=== PATIENT | male | born 1980 | race Caucasian/White ===

== ENCOUNTER 2018-12-11 22:51 | Emergency (ER) | payer MEDICAID ==
[2018-12-11 23:01] VITALS: BP 172/100
[2018-12-12] MEDS ORDERED: CLINDAMYCIN HCL 150 MG CAPSULE PO ONE (00:10)
--- NOTE | 2018-12-12 00:16 | ER Document Report ---
ED General - General Chief Complaint: Skin Problem Stated Complaint: LUMP ON BACK OF EAR Time Seen by Provider: 12/11/18 23:44 Primary Care Provider: JUVE RENTERIA NP-C [Primary Care Provider] - 12/14/18 LJ RANDLE DO [ASSOCIATE] - Follow up in 1 week Notes: Patient is a pleasant 30-year-old male presents with complaint of a lump behind his right ear. Patient says that it started earlier today but became much larger last few hours. Says he has some soreness around the area. Mild dental pain. No fevers. No vomiting. No difficulty breathing or swallowing. He denies this ever occurring in the past. He is a smoker. TRAVEL OUTSIDE OF THE [place] IN LAST 30 DAYS: No - Related Data Allergies/Adverse Reactions: bee venom protein (honey bee) Allergy (Verified 12/11/18 23:39) vancomycin Allergy (Verified 12/11/18 23:39) walnut Allergy (Verified 12/11/18 23:39) cillins Allergy (Uncoded 12/11/18 23:39) Past Medical History - Social History Smoking Status: Current Every Day Smoker Frequency of alcohol use: None Drug Abuse: None Family History: Reviewed & Not Pertinent Patient has suicidal ideation: No Patient has homicidal ideation: No Renal/ Medical History: Denies: Hx Peritoneal Dialysis Past Surgical History: Reports: Hx Tonsillectomy Review of Systems - Review of Systems Notes: My Normal Review Basic REVIEW OF SYSTEMS: CONSTITUTIONAL : Denies fever, chills, or sweats. Denies recent illness. EENT: Dental pain. Painful lump high in right ear. RESPIRATORY: Denies cough, cold, or chest congestion. Denies shortness of breath, difficulty breathing, or wheezing. GASTROINTESTINAL: Denies abdominal pain. Denies nausea, vomiting SKIN: Denies rash or skin lesions. NEUROLOGICAL: Denies altered mental status or loss of consciousness. Denies headache. Denies weakness or paralysis or loss of use of either side. Denies problems with gait or speech. Denies sensory or motor loss. ALL OTHER SYSTEMS REVIEWED AND NEGATIVE. Physical Exam - Vital signs Vitals: Temp Pulse Resp BP Pulse Ox 97.9 F 65 20 172/100 H 95 12/11/18 23:00 12/11/18 23:00 12/11/18 23:00 12/11/18 23:00 12/11/18 23:00 - Notes Notes: General Appearance: Well nourished, alert, cooperative, no acute distress, no obvious discomfort. Well-appearing. Vitals: reviewed, See vital signs table. Head: no swelling or tenderness to the head Eyes: PERRL, EOMI, Conjuctiva clear Mouth: Patient does have multiple dental caries especially in the right molar region. No gingival abscess on exam. Throat: No tonsillar inflammation, No airway obstruction, No lymphadenopathy Ear: Patient's right tympanic membrane is normal. Right ear is not red or swollen. He does have an inflamed lymph node behind the right ear. No associated abscess on palpation around the lymph node. Neck: Supple, no neck tenderness, No thyromegaly Skin: warm, dry, appropriate color, no rash Neuro: speech clear, oriented x 3, normal affect, responds appropriately to questions. Course - Re-evaluation Re-evalutation: 12/12/18 00:28 Patient has what appears to be inflamed periauricular lymph node. He does have some dental caries. I will place him on antibiotic. I encouraged him to follow-up with his doctor this week. If he continues to have enlargement of lymph node or if he has increasing swelling then he should follow-up with ear nose and throat doctor for which I gave him the phone number. Encouraged him return to ER if he has significant increase in swelling, fevers, difficulty breathing or swelling, or if he feels unwell in any way. Patient agrees with plan will be discharged home. Dictation of this chart was performed using voice recognition software; therefore, there may be some unintended grammatical errors. - Vital Signs Vital signs: Temp Pulse Resp BP Pulse Ox 97.9 F 65 20 172/100 H 95 12/11/18 23:00 12/11/18 23:00 12/11/18 23:00 12/11/18 23:00 12/11/18 23:00 Discharge - Discharge Clinical Impression: Enlarged lymph node in neck Condition: Good Disposition: HOME, SELF-CARE Additional Instructions: On exam you have an enlarged lymph node in the periauricular region. This is just behind and below the right ear. This is usually related to infection. This can also be caused by cancer however this is likely being the node just suddenly became inflamed today. We will place you on an antibiotic to help cover for potential causes of infection such as a dental infection or ear infection. I want you to follow up with your doctor next week for reevaluation. If the area of swelling or lymph node does not improve and continues to enlarge you may need to follow-up with ear nose and throat doctor. I have plac ed the phone number to Dr. Randle, our ear nose and throat physician build automation engineer. Please call his office to make a follow-up appointment if it is not reducing in size or if it is enlarging. Please return to the ER immediately if you have fevers, significant increase in swelling, difficulty breathing or swallowing, or if you feel that you are worsening in any way. Prescriptions: Clindamycin HCl [Cleocin 150 mg Capsule] 300 mg PO Q6 #56 capsule Forms: Return to Work Referrals: JUVE RENTERIA, SYSTEMS ARCHITECT-C [Primary Care Provider] - 12/14/18 LJ RANDLE DO [ASSOCIATE] - Follow up in 1 week
== END 2018-12-12 00:25 | disposition home or self-care (01) ==
LOC: ER 22:51
DX: R59.0 Localized enlarged lymph nodes (principal); K02.9 Dental caries, unspecified; K08.89 Other specified disorders of teeth and supporting structures; F17.200 Nicotine dependence, unspecified, uncomplicated
CPT/HCPCS: 99283; J3490

== ENCOUNTER 2020-05-06 12:53 | Observation (INO) | payer MEDICAID ==
[~2020-05-06 12:53] MED LIST: SUCCINYLCHOLINE CHLORIDE INJ 200 MG/10 ML VIAL ONE
[2020-05-06] MEDS ORDERED: CLINDAMYCIN 300 MG/D5W RTU 300 MG/50 ML RTUPB IV ONE (14:51)
--- NOTE | 2020-05-06 14:53 | ER Document Report ---
ED Skin Rash/Insect Bite/Abscs - General Chief Complaint: Cyst Stated Complaint: POSSIBLE CYST Time Seen by Provider: 05/06/20 13:55 Notes: Patient is a 39-year-old male who presents to the emergency department with a chief complaint of a possible abscess to his perineal area that radiates to his left testicle. States that he started to have pain 2 days ago. States that he went to urgent care and they referred him to the emergency department. Patient states that he has history of abscesses in the past. Denies any history of IV drug use. TRAVEL OUTSIDE OF THE [place] IN LAST 30 DAYS: No - Related Data Allergies/Adverse Reactions: bee venom protein (honey bee) Allergy (Verified 12/11/18 23:39) vancomycin Allergy (Verified 12/11/18 23:39) walnut Allergy (Verified 12/11/18 23:39) cillins Allergy (Uncoded 12/11/18 23:39) Past Medical History - Social History Smoking Status: Unknown if Ever Smoked Family History: Reviewed & Not Pertinent Patient has homicidal ideation: No Renal/ Medical History: Denies: Hx Peritoneal Dialysis Past Surgical History: Reports: Hx Tonsillectomy Review of Systems - Review of Systems Notes: REVIEW OF SYSTEMS: CONSTITUTIONAL : Denies recent illness. Denies recent unintentional weight loss. Denies fever, chills, or sweats. EENT: Denies eye, ear, throat, or mouth pain, discharge, or symptoms. Denies nasal or sinus congestion. CARDIOVASCULAR: Denies chest pain. RESPIRATORY: Denies shortness of breath, cough, congestion, difficulty breathing, or wheezing. GASTROINTESTINAL: Denies nausea, vomiting, and diarrhea. Denies abdominal pain. Denies constipation. GENITOURINARY: Denies difficulty urinating, burning, blood in urine, urgency or frequency. MUSCULOSKELETAL: Denies neck and back pain. Denies joint pain or swelling. SKIN: See HPI. HEMATOLOGIC : Denies easy bruising or bleeding. LYMPHATIC: Denies swollen, painful, enlarged glands. NEUROLOGICAL: Denies no numbness or tingling denies weakness. Denies headache. Denies altered mental status. Denies alteration in speech. PSYCHIATRIC: Denies stress, anxiety, alteration in sleep patterns, or depression. All other systems reviewed and negative. Physical Exam - Vital signs Vitals: Temp Pulse Resp BP Pulse Ox 100 F 88 16 138/80 H 100 12/13/20 13:16 05/06/20 13:16 05/06/20 13:16 05/06/20 13:16 05/06/20 13:16 - Notes Notes: PHYSICAL EXAMINATION: GENERAL: Appears well, healthy, well-nourished, no acute distress. HEAD: Normocephalic, atraumatic. EYES: PERRL, conjunctiva normal, all extraocular movements intact, sclera nonicteric ENT: Moist mucous membranes. NECK: Supple, no noticeable swelling, redness, rash. Normal range of motion. LUNGS: Equal breath sounds bilaterally and clear to auscultation. No wheezes rales or rhonchi. CARDIOVASCULAR: S1-S2, regular rate, regular rhythm. Radial pulses 2+, normal. ABDOMEN: Normoactive bowel sounds. Soft, nontender, no guarding, no rebound tenderness, and no masses palpated. EXTREMITIES: Normal strength and range of motion, no pitting or edema. No cyanosis. NEUROLOGICAL: Moves all extremities upon command. Strength 5/5 in all extremities. PSYCH: Normal mood, normal affect. SKIN: Warm, dry. No rash, lesions, ulcerations noted. Normal skin turgor. PERINIUM: Erythema noted to Left side of perinium. Course - Re-evaluation Re-evalutation: 05/06/20 17:10 Hematology shows a leukocytosis of 14,100. Chemistries are unremarkable. Nadia RN at bedside. I did appreciate an abscess on ultrasound. 05/06/20 17:[address] Julian. Will await a call back. 05/06/20 17:[address] Julian. He will evaluate the patient. 05/06/20 18:18 Dr. Julian has evaluated the patient. Patient will be brought to the OR and will be admitted to the surgical floor. - Vital Signs Vital signs: Temp Pulse Resp BP Pulse Ox 100 F 88 16 138/80 H 100 05/06/20 13:16 05/06/20 13:16 05/06/20 13:16 05/06/20 13:16 05/06/20 13:16 - Laboratory Results Result Diagrams: 05/06/20 14:36 05/06/20 14:36 Laboratory Results Interpreted: 05/06/20 14:36 WBC 14.1 H Absolute Neuts (auto) 10.8 H Critical Laboratory Results Reviewed: No Critical Results - Radiology Results Critical Radiology Results Reviewed: No Critical Results Discharge - Discharge Clinical Impression: Perineal abscess Condition: Stable Disposition: ADMITTED INPATIENT Admitting Provider: Surgicalist Unit Admitted: Surgical Floor
[2020-05-06 15:17] LABS: ABSOLUTE BASOPHILS # (AUTO) 0.1 10^3/uL (0.0-0.2); ABSOLUTE EOSINOPHILS # (AUTO) 0.2 10^3/uL (0.0-0.6); ABSOLUTE LYMPHOCYTES (AUTO) 1.9 10^3/uL (0.5-4.7); ABSOLUTE NEUT (AUTO) 10.8 10^3/uL (1.7-8.2); BASOPHILS % (AUTO) 0.5 % (0-2); EOSINOPHILS % (AUTO) 1.7 % (0-6); HEMATOCRIT 43.3 % (37.9-51.0); HEMOGLOBIN 15.1 g/dL (13.5-17.0); LYMPHOCYTES % (AUTO) 13.3 % (13-45); MEAN CORPUSCULAR HEMOGLOBIN 31.6 pg (27.0-33.4); MEAN CORPUSCULAR HGB CONC 34.8 g/dL (32.0-36.0); MEAN CORPUSCULAR VOLUME 91 fl (80-97); MONOCYTES % (AUTO) 7.3 % (3-13); PLATELET COUNT 221 10^3/uL (150-450); RED BLOOD COUNT 4.78 10^6/uL (4.35-5.55); RED CELL DISTRIBUTION WIDTH 13.5 % (11.5-14.0); SEGMENTED NEUTROPHILS % (AUTO) 77.2 % (42-78); TOTAL CELLS COUNTED % (AUTO) 100 %; WHITE BLOOD COUNT 14.1 10^3/uL (4.0-10.5)
[2020-05-06 15:27] LABS: ALBUMIN 4.2 g/dL (3.5-5.0); ALKALINE PHOSPHATASE 78 U/L (38-126); ANION GAP 12 (5-19); ASPARTATE AMINO TRANSFERASE 27 U/L (17-59); BILIRUBIN,DIRECT 0.2 mg/dL (0.0-0.4); BILIRUBIN,TOTAL 0.5 mg/dL (0.2-1.3); BLOOD UREA NITROGEN 13 mg/dL (7-20); CALCIUM 9.7 mg/dL (8.4-10.2); CARBON DIOXIDE 25 mmol/L (22-30); CHLORIDE 102 mmol/L (98-107); GLUCOSE 91 mg/dL (75-110); TOTAL PROTEIN 7.3 g/dL (6.3-8.2)
[2020-05-06] MEDS ORDERED: RINGERS SOLUTION,LACTATED 1,000 ML IV ONE ×2 (18:31→18:37)
[2020-05-06] MEDS ORDERED: RINGERS SOLUTION,LACTATED 1,000 ML IV PRN (18:31)
--- NOTE | 2020-05-06 18:37 | PDOC H&P ---
History of Present Illness Admission Date/PCP: SP [facility] Patient complains of: Anal pain History of Present Illness: ARLEY YEUNG is a 39 year old male Presents emergency department with a several day history of swelling, pain, feeling of fullness in the right perianal area. Patient seen emergency department diagnosed with perianal abscess. Surgery was consulted patient was evaluated, felt to require drainage in the operating room. Patient had exposure to a Covid positive patient 3 weeks ago and tested negative. He denies respiratory symptoms. Patient does smoke a pack of cigarettes per day. Repeat Covid test pending. Past Medical History Past Medical History: Hypertension, COPD, smoking abuse, perianal abscess Past Surgical History Past Surgical History: Uvulopalatoplasty, tonsillectomy Past Surgical History: Reports: Tonsillectomy Social History Information Source: Patient Smoking Status: Current Every Day Smoker Frequency of Alcohol Use: Rare Hx Recreational Drug Use: No Family History Family History: None, Reviewed & Not Pertinent Parental Family History Reviewed: No Children Family History Reviewed: No Sibling(s) Family History Reviewed.: No Medication/Allergy Home Medications: Clindamycin HCl [Cleocin 150 mg Capsule] 300 mg PO Q6 #56 capsule 12/12/18 Allergies/Adverse Reactions: bee venom protein (honey bee) Allergy (Verified 12/11/18 23:39) vancomycin Allergy (Verified 12/11/18 23:39) walnut Allergy (Verified 12/11/18 23:39) cillins Allergy (Uncoded 12/11/18 23:39) Review of Systems Constitutional: PRESENT: as per HPI Eyes: ABSENT: visual disturbances Ears: ABSENT: hearing changes Cardiovascular: ABSENT: chest pain, dyspnea on exertion, edema, orthropnea, palpitations Respiratory: ABSENT: cough, hemoptysis Genitourinary: PRESENT: as per HPI Musculoskeletal: ABSENT: joint swelling Integumentary: ABSENT: rash, wounds Neurological: ABSENT: abnormal gait, abnormal speech, confusion, dizziness, focal weakness, syncope Psychiatric: ABSENT: anxiety, depression, homidical ideation, suicidal ideation Endocrine: ABSENT: cold intolerance, heat intolerance, polydipsia, polyuria Hematologic/Lymphatic: ABSENT: easy bleeding, easy bruising Physical Exam Vital Signs: Temp Pulse Resp BP Pulse Ox 100 F 88 16 138/80 H 100 05/06/20 13:16 05/06/20 13:16 05/06/20 13:16 05/06/20 13:16 05/06/20 13:16 Intake & Output 05/05/20 05/06/20 05/07/20 06:59 06:59 06:59 Intake Total 50 Balance 50 Weight 127.006 kg General appearance: PRESENT: no acute distress Head exam: PRESENT: normocephalic Eye exam: PRESENT: EOMI Mouth exam: PRESENT: dry mucosa Neck exam: PRESENT: full ROM Respiratory exam: PRESENT: rhonchi Cardiovascular exam: PRESENT: RRR Pulses: PRESENT: normal carotid pulses, normal radial pulses, normal femoral pulses GI/Abdominal exam: PRESENT: soft Rectal exam: PRESENT: other - Patient placed in left lateral cubitus position. Obvious swelling involving the right cheek, extending to the perianal tissue wit h a vertically oriented focal swelling, very tender with mild erythema, no drainage. Neurological exam: PRESENT: oriented to person, oriented to place, oriented to time, oriented to situation Psychiatric exam: PRESENT: appropriate affect Skin exam: PRESENT: intact Results Laboratory Results: 05/06/20 14:36 05/06/20 14:36 05/06/20 05/06/20 14:36 14:36 WBC 14.1 H RBC 4.78 Hgb 15.1 Hct 43.3 MCV 91 MCH 31.6 MCHC 34.8 RDW 13.5 Plt Count 221 Seg Neutrophils % 77.2 Sodium 138.6 Potassium 5.0 Chloride 102 Carbon Dioxide 25 Anion Gap 12 BUN 13 Creatinine 0.91 Est GFR ( Amer) > 60 Glucose 91 Calcium 9.7 Total Bilirubin 0.5 AST 27 Alkaline Phosphatase 78 Total Protein 7.3 Albumin 4.2 Assessment & Plan - Diagnosis (1) Perineal abscess Is this a current diagnosis for this admission?: Yes Plan: Impression: Acute perianal abscess, right side, possibly recurrent, in need of bandage Plan: 1. Admit, n.p.o., IV fluids, intravenous antibiotics, rapid Covid test 2. Take patient to operating room for exam under anesthesia, drainage, packing, possible seton placement by Dr. Julian [facility], May 06 (2) Smoker Is this a current diagnosis for this admission?: Yes (3) Hypertension Is this a current diagnosis for this admission?: Yes - Time Time Spent: 30 to 50 Minutes Critical Time spent with patient: 15-24 minutes Smoking Cessation Education: 3 to 10 minutes Medications reviewed and adjusted accordingly: Yes Anticipated Discharge Disposition: Home, Self Care Anticipated Discharge Timeframe: within 48 hours
[2020-05-06] MEDS ORDERED: MIDAZOLAM 2 MG/2 ML INJ ONE (19:34)
[2020-05-06] MEDS ORDERED: HYDROMORPHONE HCL INJ/PF 2 MG/ML AMPULE ONE (19:34)
[2020-05-06] MEDS ORDERED: PROPOFOL INJ 200 MG/20 ML VIAL IV ONE (19:34)
[2020-05-06] MEDS ORDERED: FENTANYL CITRATE INJ/PF 250 MCG/5 ML AMPULE ONE (19:34)
[2020-05-06] MEDS ORDERED: BUPIVACAINE HCL 0.25 % INJ/PF (2.5 MG/1 ML) 30 ML VIAL ONE (19:36)
[2020-05-06] MEDS ORDERED: ONDANSETRON HCL INJ/PF 4 MG/2 ML SDV ONE (19:40)
[2020-05-06] MEDS ORDERED: FENTANYL CITRATE INJ/PF 100 MCG/2 ML AMPUL IV PRN ×3 (20:27)
[2020-05-06] MEDS ORDERED: PROMETHAZINE HCL INJ 25 MG/1 ML VIAL IV PRN ×2 (20:27)
[2020-05-06] MEDS ORDERED: MORPHINE SULFATE 10 MG/ML INJ IV PRN (20:27)
[2020-05-06] MEDS ORDERED: MEPERIDINE HCL/PF INJ 25 MG/1 ML DISP.SYRIN IV PRN (20:27)
[2020-05-06] MEDS ORDERED: DIPHENHYDRAMINE HCL 50 MG/ML VIAL IV PRN (20:27)
--- NOTE | 2020-05-06 20:47 | Operative Report ---
Operative Report DATE OF SURGERY: 05/06/20 PREOPERATIVE DIAGNOSIS: Right perianal abscess. Smoker POSTOPERATIVE DIAGNOSIS: Same with. 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 2. Perianal abscess OPERATION: 1. Examination under anesthesia of the anal canal. 2. Drainage of right perianal abscess. 3. Definition of fistula tract to anus with placement of seton SURGEON: ANTHONY SIMPSON ANESTHESIA: GA TISSUE REMOVED OR ALTERED: Pus COMPLICATIONS: None ESTIMATED BLOOD LOSS: Scant INTRAOPERATIVE FINDINGS: See below PROCEDURE: Patient was taken the preop holding her to the main operating room general anesthesia was induced. Placed in the prone jackknife position buttocks taped after shaving all hair. The perineum, and perianal tissue was prepped and draped with Betadine. Surgical plan and surgical timeout were conducted. The point of maximum inflammation, swelling and tenderness was parallel to the median raphae on the patient's right side. Approximately 4 cm incision was made lateral to the median raphae, directed towards perianal tissue. Approximately 50 cc of pus was evacuated, and sent for Gram stain culture and sensitivity. There was tracking of the pocket towards the scrotum approximately 4 cm, and and tracking posteriorly towards the anal canal. I inserted a probe through the a bscess cavity and it opened up into the distal anal canal. The tract was relatively straightforward. It was difficult to ascertain whether the fistula tract involved the external anal sphincter. My impression is that there were minimal if any fibers involved in the tract. I did place a rubber vascular loop through the fistula tract and tied it in a knot. We irrigated the abscess cavity out and again checked for any undrained areas and there were none. Of note I did inspect the anal canal and other than a somewhat patulous anus, there was no other pathology identified. At this point felt the operation was complete. Approximately 2-1/2 feet of half-inch iodoform packing was placed into the abscess cavity. Nothing was placed in the anal canal. 4 x 4's and dressing applied. Patient was rotated into the supine position, and extubated and taken to recovery room in stable condition.
[2020-05-06] MEDS ORDERED: KETOROLAC TROMETHAMINE INJ/PF 30 MG/1 ML SDV ONE (21:00)
[2020-05-06] MEDS: CLINDAMYCIN 600 MG/D5W RTU 600 MG/50 ML RTUPB IV SCH (21:43)
[2020-05-07] MEDS: ACETAMINOPHEN INJ/PF 1000 MG/100 ML SDV IV SCH ×2 (00:08→05:25)
[2020-05-07] MEDS ORDERED: MEPERIDINE HCL/PF INJ 25 MG/1 ML DISP.SYRIN IV ONE (00:30)
[2020-05-07] MEDS ORDERED: MEPERIDINE HCL/PF INJ 25 MG/1 ML DISP.SYRIN ONE (00:50)
[2020-05-07] MEDS: ONDANSETRON HCL INJ/PF 4 MG/2 ML SDV IV PRN ×2 (01:04→10:04)
[2020-05-07] MEDS: KETOROLAC TROMETHAMINE INJ/PF 30 MG/1 ML SDV IV PRN ×2 (04:57→10:05)
[2020-05-07] MEDS: CLINDAMYCIN 600 MG/D5W RTU 600 MG/50 ML RTUPB IV SCH (05:25)
--- NOTE | 2020-05-07 08:17 | PDOC DISCHARGE SUMMARY ---
General - Admit/Disc Date/PCP Admission Date/Primary Care Provider: 05/06/20 20:47 SP LIM Discharge Date: 05/07/20 - Discharge Diagnosis Final Diagnosis: perirectal abscess - Assessment Summary: pt admitted with perirectal abscess taken to or for i and d iwth seton pt did well post op woiund examined this am, clean pack removed has seton in place will dc home today on po abx and pain med f/u in surgery clinic in 7-10 days instructed in sitz bath with epsom salt. - Additional Information Resuscitation Status: Full Code Discharge Diet: As Tolerated Discharge Activity: Activity As Tolerated Referrals: JUVE RENTERIA NP-C [Primary Care Provider] - Follow up as needed Prescriptions: Sulfamethoxazole/Trimethoprim [Bactrim Ds Tablet] 1 each PO BID #20 tablet Oxycodone HCl/Acetaminophen [Percocet 7.5-325 mg Tablet] 1 each PO Q6HP PRN #10 tablet PRN Reason: Home Medications: Clindamycin HCl [Cleocin 150 mg Capsule] 300 mg PO Q6 #56 capsule 12/12/18 Oxycodone HCl/Acetaminophen [Percocet 7.5-325 mg Tablet] 1 each PO Q6HP PRN #10 tablet 05/07/20 Sulfamethoxazole/Trimethoprim [Bactrim Ds Tablet] 1 each PO BID #20 tablet 05/07/20 Additional Information: sitz bath with epsom salt tid History of Present Illiness History of Present Illness: ARLEY YEUNG is a 39 year old male Physical Exam Vital Signs: Temp Pulse Resp BP Pulse Ox 99.5 F 89 18 111/68 96 05/07/20 03:00 05/07/20 03:00 05/07/20 03:00 05/07/20 03:00 05/07/20 03:00 Intake & Output 05/06/20 05/07/20 05/08/20 06:59 06:59 06:59 Intake Total 2075 Output Total 460 Balance 1615 Weight 111.6 kg Results Laboratory Results: WBC 14.1 10^3/uL (4.0-10.5) H 05/06/20 14:36 RBC 4.78 10^6/uL (4.35-5.55) 05/06/20 14:36 Hgb 15.1 g/dL (13.5-17.0) 05/06/20 14:36 Hct 43.3 % (37.9-51.0) 05/06/20 14:36 MCV 91 fl (80-97) 05/06/20 14:36 MCH 31.6 pg (27.0-33.4) 05/06/20 14:36 MCHC 34.8 g/dL (32.0-36.0) 05/06/20 14:36 RDW 13.5 % (11.5-14.0) 05/06/20 14:36 Plt Count 221 10^3/uL (150-450) 05/06/20 14:36 Lymph % (Auto) 13.3 % (13-45) 05/06/20 14:36 [place] % (Auto) 7.3 % (3-13) 05/06/20 14:36 Eos % (Auto) 1.7 % (0-6) 05/06/20 14:36 Baso % (Auto) 0.5 % (0-2) 05/06/20 14:36 Absolute Neuts (auto) 10.8 10^3/uL (1.7-8.2) H 05/06/20 14:36 Absolute Lymphs (auto) 1.9 10^3/uL (0.5-4.7) 05/06/20 14:36 Absolute Monos (auto) 1.0 10^3/uL (0.1-1.4) 05/06/20 14:36 Absolute Eos (auto) 0.2 10^3/uL (0.0-0.6) 05/06/20 14:36 Absolute Basos (auto) 0.1 10^3/uL (0.0-0.2) 05/06/20 14:36 Seg Neutrophils % 77.2 % (42-78) 05/06/20 14:36 Sodium 138.6 mmol/L (137-145) 05/06/20 14:36 Potassium 5.0 mmol/L (3.6-5.0) 05/06/20 14:36 Chloride 102 mmol/L (98-107) 05/06/20 14:36 Carbon Dioxide 25 mmol/L (22-30) 05/06/20 14:36 Anion Gap 12 (5-19) 05/06/20 14:36 BUN 13 mg/dL (7-20) 05/06/20 14:36 Creatinine 0.91 mg/dL (0.52-1.25) 05/06/20 14:36 Est GFR ( Amer) > 60 (>60) 05/06/20 14:36 Est GFR (MDRD) Non-Af > 60 (>60) 05/06/20 14:36 Glucose 91 mg/dL (75-110) 05/06/20 14:36 Calcium 9.7 mg/dL (8.4-10.2) 05/06/20 14:36 Total Bilirubin 0.5 mg/dL (0.2-1.3) 05/06/20 14:36 Direct Bilirubin 0.2 mg/dL (0.0-0.4) 05/06/20 14:36 Neonat Total Bilirubin Not Reportable 05/06/20 14:36 Neonat Direct Bilirubin Not Reportable 05/06/20 14:36 Neonat Indirect Bili Not Reportable 05/06/20 14:36 AST 27 U/L (17-59) 05/06/20 14:36 ALT 27 U/L (<50) 05/06/20 14:36 Alkaline Phosphatase 78 U/L (38-126) 05/06/20 14:36 Total Protein 7.3 g/dL (6.3-8.2) 05/06/20 14:36 Albumin 4.2 g/dL (3.5-5.0) 05/06/20 14:36 Influenza A (RT-PCR) NEGATIVE (NEGATIVE) 05/06/20 18:18 Influenza B (RT-PCR) NEGATIVE (NEGATIVE) 05/06/20 18:18 RSV (RT-PCR) NEGATIVE (NEGATIVE) 05/06/20 18:18 SARS-CoV-2 Rap RNA(RT-PCR) NEGATIVE (NEGATIVE) 05/06/20 18:18
[2020-05-07 08:54] LABS: HEMATOCRIT 39.3 % (37.9-51.0); HEMOGLOBIN 13.6 g/dL (13.5-17.0); MEAN CORPUSCULAR HEMOGLOBIN 31.6 pg (27.0-33.4); MEAN CORPUSCULAR HGB CONC 34.6 g/dL (32.0-36.0); MEAN CORPUSCULAR VOLUME 91 fl (80-97); PLATELET COUNT 193 10^3/uL (150-450); RED CELL DISTRIBUTION WIDTH 13.7 % (11.5-14.0); WHITE BLOOD COUNT 12.8 10^3/uL (4.0-10.5)
[2020-05-07 09:07] VITALS: BP 120/75
[2020-05-07] MEDS ORDERED: DOCUSATE SODIUM 100 MG CAPSULE PO SCH (10:00)
== END 2020-05-07 11:44 | disposition home or self-care (01) ==
LOC: ER 12:53 → EH 18:32 → UNDOADMOB 18:32 → INTOOBSV 18:32 → 4N 20:37 → EH 20:37 → 4N 21:25
DX: K61.1 Rectal abscess (principal); Z20.828 Contact with and (suspected) exposure to other viral communicable diseases; F17.210 Nicotine dependence, cigarettes, uncomplicated; I10 Essential (primary) hypertension; J44.9 Chronic obstructive pulmonary disease, unspecified; Z88.0 Allergy status to penicillin; Z88.1 Allergy status to other antibiotic agents
CPT/HCPCS: 99285; 96361; 96365; 96366; 36415 ×2; 87040; 87070; 87205; 85025; 85027; 0241U ×4; 87075; 87077; 80053; 87186; 99140; 00902; 46050; G0378; G0379 ×2; J2250; S0077; J3490 ×2; J3010; J2175; J1885 ×2; J1170; J0330; J2405 ×2; J7120; J2704; C9803; 902

== ENCOUNTER 2020-05-07 18:57 | Observation (INO) | payer MEDICAID ==
[2020-05-07] MEDS ORDERED: ACETAMINOPHEN 325 MG TABLET PO ONE (19:24)
[2020-05-07] MEDS ORDERED: NORMAL SALINE 1000 ML 3,370 ML IV ONE (19:24)
--- NOTE | 2020-05-07 19:34 | ER Document Report ---
ED Medical Screen (RME) - General Chief Complaint: Fever Stated Complaint: FEVER POST SURGERY Time Seen by Provider: 05/07/20 19:19 Primary Care Provider: JUVE RENTERIA NP-C [Primary Care Provider] - Follow up as needed TRAVEL OUTSIDE OF THE [place] IN LAST 30 DAYS: No - HPI Notes: Patient is a 39-year-old male who presents with fever status post surgery that occurred yesterday. Patient had a perineal abscess drained yesterday and was discharged earlier this morning. After getting home patient spiked a fever of 102.1. called the surgery clinic and they were advised to come to the ED if his fever got any higher. states that around 6 PM this evening he had a fever of 103 F. Patient has been taking Percocet and his last dose was at around 6 PM this evening. He has not taken any other Tylenol or Motrin for his fever. Patient reports myalgias but denies chest pain or shortness of breath. - Related Data Allergies/Adverse Reactions: bee venom protein (honey bee) Allergy (Verified 12/11/18 23:39) vancomycin Allergy (Verified 12/11/18 23:39) walnut Allergy (Verified 12/11/18 23:39) cillins Allergy (Uncoded 12/11/18 23:39) Past Medical History Pulmonary Medical History: Reports: Hx COPD Renal/ Medical History: Denies: Hx Peritoneal Dialysis Psychiatric Medical History: Denies: Hx Depression Past Surgical History: Reports: Hx Tonsillectomy Physical Exam - Vital signs Vitals: Temp Pulse Resp BP Pulse Ox 101.9 F H 111 H 22 H 126/87 H 95 05/07/20 19:05 05/07/20 19:05 05/07/20 19:05 05/07/20 19:05 05/07/20 19:05 Interpretation: Tachycardic, Febrile - General In distress: Mild Course - Re-evaluation Re-evalutation: I have greeted and performed a rapid initial assessment of this patient. A comprehensive ED assessment and evaluation of the patient, analysis of test results and completion of medical decision making process will be conducted by an additional ED providers. - Vital Signs Vital signs: Temp Pulse Resp BP Pulse Ox 101.9 F H 111 H 22 H 126/87 H 95 05/07/20 19:05 05/07/20 19:05 05/07/20 19:05 05/07/20 19:05 05/07/20 19:05 Doctor's Discharge - Discharge Referrals: JUVE RENTERIA FINANCE DIRECTOR-C [Primary Care Provider] - Follow up as needed
[2020-05-07] MEDS ORDERED: PIPERACILLIN/TAZOBACTAM 3.375 GM VIAL IV ONE (19:36)
[2020-05-07 20:09] LABS: ABSOLUTE LYMPHOCYTES (AUTO) 0.5 10^3/uL (0.5-4.7); ABSOLUTE MONOCYTES (AUTO) 0.7 10^3/uL (0.1-1.4); ABSOLUTE NEUT (AUTO) 8.2 10^3/uL (1.7-8.2); BASOPHILS % (AUTO) 0.5 % (0-2); EOSINOPHILS % (AUTO) 0.2 % (0-6); HEMATOCRIT 39.6 % (37.9-51.0); HEMOGLOBIN 13.8 g/dL (13.5-17.0); LYMPHOCYTES % (AUTO) 5.6 % (13-45); MEAN CORPUSCULAR HEMOGLOBIN 31.7 pg (27.0-33.4); MEAN CORPUSCULAR HGB CONC 34.8 g/dL (32.0-36.0); MEAN CORPUSCULAR VOLUME 91 fl (80-97); MONOCYTES % (AUTO) 7.7 % (3-13); PLATELET COUNT 207 10^3/uL (150-450); RED BLOOD COUNT 4.35 10^6/uL (4.35-5.55); RED CELL DISTRIBUTION WIDTH 13.4 % (11.5-14.0); TOTAL CELLS COUNTED % (AUTO) 100 %; WHITE BLOOD COUNT 9.6 10^3/uL (4.0-10.5)
[2020-05-07 20:26] LABS: ALBUMIN 3.9 g/dL (3.5-5.0); ALKALINE PHOSPHATASE 74 U/L (38-126); ANION GAP 9 (5-19); ASPARTATE AMINO TRANSFERASE 37 U/L (17-59); BILIRUBIN,DIRECT 0.1 mg/dL (0.0-0.4); BILIRUBIN,TOTAL 0.9 mg/dL (0.2-1.3); BLOOD UREA NITROGEN 22 mg/dL (7-20); CALCIUM 9.2 mg/dL (8.4-10.2); CARBON DIOXIDE 23 mmol/L (22-30); CHLORIDE 96 mmol/L (98-107); GLUCOSE 114 mg/dL (75-110); POTASSIUM 4.7 mmol/L (3.6-5.0)
[2020-05-08] MEDS ORDERED: PIPERACILLIN/TAZOBACTAM 3.375 GM VIAL IV ONE (00:49)
[2020-05-08] MEDS ORDERED: MORPHINE SULFATE 10 MG/ML INJ ONE (01:32)
[2020-05-08] MEDS ORDERED: KETOROLAC TROMETHAMINE INJ/PF 30 MG/1 ML SDV ONE (01:37)
[2020-05-08] MEDS ORDERED: METRONIDAZOLE 500 MG/NS RTU 500 MG/100 ML RTUPB IV ONE (01:38)
[2020-05-08] MEDS ORDERED: CEFEPIME 2 GM/D5W RTU 2 GM/50 ML RTUPB IV ONE (01:38)
--- NOTE | 2020-05-08 04:50 | ER Document Report ---
ED General - General Chief Complaint: Fever Stated Complaint: FEVER POST SURGERY Time Seen by Provider: 05/07/20 19:19 Notes: 39-year-old male with hypertension and surgical I&D of perianal abscess approximately 1 day prior to arrival presents with recurrent fevers for the past day since being discharged from hospital. Patient was discharged on Bactrim which she only had 1 dose of prior to arrival. Patient has been having measured fevers all day which recurred after antipyretics. Patient denies any diabetes, HIV, immunocompromise history, prior episodes, recent prior hospitalizations for for I&D, other recent antibiotics. Pain has been in the same location around the anal area since prior to I&D and has not worsened since I&D. TRAVEL OUTSIDE OF THE [place] IN LAST 30 DAYS: No - Related Data Allergies/Adverse Reactions: Penicillins Allergy (Severe, Verified 05/07/20 21:17) Anaphylaxis amoxicillin Allergy (Verified 05/07/20 21:17) Anaphylaxis bee venom protein (honey bee) Allergy (Verified 12/11/18 23:39) vancomycin Allergy (Verified 12/11/18 23:39) walnut Allergy (Verified 12/11/18 23:39) cillins Allergy (Uncoded 12/11/18 23:39) Home Medications: Percocet Past Medical History - General Information source: Patient, Relative, [facility] Records - Social History Smoking Status: Unknown if Ever Smoked Family History: Reviewed & Not Pertinent Pulmonary Medical History: Reports: Hx COPD Renal/ Medical History: Denies: Hx Peritoneal Dialysis Psychiatric Medical History: Denies: Hx Depression Past Surgical History: Reports: Hx Tonsillectomy Review of Systems - Review of Systems Notes: REVIEW OF SYSTEMS: CONSTITUTIONAL : + fever, chills, or sweats. EENT: Denies recent cold/sinus symptoms, denies throat pain CARDIOVASCULAR: Denies chest pain, ROSHAN RESPIRATORY: Denies cough, denies shortness of breath. GASTROINTESTINAL: Denies abdominal pain, nausea/vomiting. GENITOURINARY: Denies difficulty urinating, painful urination. MUSCULOSKELETAL: Denies neck pain, back pain. SKIN: Denies rash or skin lesions. HEMATOLOGIC : Denies easy bruising or bleeding. LYMPHATIC: Denies swollen, enlarged glands. NEUROLOGICAL: Denies headache, denies change in gait. PSYCHIATRIC: Denies anxiety or stress or depression. Physical Exam - Vital signs Vitals: Temp Pulse Resp BP Pulse Ox 101.9 F H 111 H 22 H 126/87 H 95 05/07/20 19:05 05/07/20 19:05 05/07/20 19:05 05/07/20 19:05 05/07/20 19:05 - Notes Notes: PHYSICAL EXAMINATION: GENERAL: Uncomfortable appearing young adult male with rigors but nontoxic appearance in no acute distress HEAD: Atraumatic, normocephalic. EYES: Pupils equal round and appropriate constriction, sclera anicteric, conjunctiva are normal. ENT: nares patent, moist mucous membranes. NECK: Normal range of motion, supple without lymphadenopathy LUNGS: Breath sounds clear to auscultation bilaterally and equal. No wheezes rales or rhonchi. HEART: Borderline tachycardic without murmurs rubs or gallops ABDOMEN: Soft, nontender, no guarding, no masses, no CVAT, patient with yellow discharge soaking 4 x 4 around anus, drain in place next to anus at appr oximately 5:00, clean incision, diffuse mild tenderness around medial buttocks bilaterally without obvious skin abnormalities, unable to tolerate rectal exam secondary to pain EXTREMITIES: Normal range of motion, no pitting or edema. No cyanosis. NEUROLOGICAL: Awake, alert, conversing appropriately, moves all extremities spontaneously. PSYCH: Normal mood, normal affect. SKIN: Warm, Dry, normal turgor, no rashes or lesions noted. Course - Re-evaluation Re-evalutation: 05/08/20 04:47 Patient with persistent fevers after I&D for perianal abscess, rule out recurrent abscess, sepsis. Less likely necrotizing fasciitis as patient's symptoms have been stable other than fever for past 2 days. Gave empiric broad- spectrum antibiotics and ordered CT abdomen pelvis which showed subcutaneous air "not expected "for post surgical status. I discussed this finding with Dr. Walls who will be evaluating patient shortly. No signs of other source of fever, no meningitis symptoms, no back pain, no urinary symptoms, no respiratory symptoms and patient is young healthy adult able to give complete history. Patient presented to Dr. Cates who has accepted patient to medicine floor. Patient feels improved since analgesia and has no current complaints. - Vital Signs Vital signs: Temp Pulse Resp BP Pulse Ox 98 F 77 18 116/68 95 05/09/20 00:00 05/09/20 00:00 05/09/20 00:00 05/09/20 00:00 05/09/20 00:00 - Laboratory Results Result Diagrams: 05/07/20 19:45 05/08/20 08:43 Laboratory Results Interpreted: 05/07/20 05/07/20 19:45 19:45 Lymph % (Auto) 5.6 L Seg Neutrophils % 86.0 H Sodium 128.3 L Chloride 96 L BUN 22 H Creatinine 1.27 H Glucose 114 H Critical Laboratory Results Reviewed: No Critical Results - Radiology Results Critical Radiology Results Reviewed: No Critical Results Discharge - Discharge Clinical Impression: Sepsis Qualifiers: Sepsis type: sepsis due to unspecified organism Sepsis acute organ dysfunction status: without acute organ dysfunction Qualified Code(s): A41.9 - Sepsis, unspecified organism Disposition: ADMITTED INPATIENT Admitting Provider: [facility] Unit Admitted: Medical Floor
[2020-05-08] MEDS ORDERED: LINEZOLID 600 MG/300 ML RTUPB IV ONE (05:03)
--- NOTE | 2020-05-08 05:31 | RADIOLOGY REPORT (SQ) ---
CT abdomen and pelvis with contrast on 05/08/2020 at 2:14 AM CLINICAL INDICATION: Fever, lower abdominal pain, status post perianal abscess drainage TECHNIQUE: Multiple axial images are obtained throughout the abdomen and pelvis following the administration of IV contrast. This exam was performed according to our departmental dose-optimization program, which includes automated exposure control, adjustment of the mA and/or kV according to patient size and/or use of iterative reconstruction technique. Total DLP is 2306.78 mGy*cm. COMPARISON: None FINDINGS: Abdomen: There is linear atelectasis or scarring in the bilateral lower lungs. There is fatty infiltration of the liver. Solid abdominal organs are otherwise unremarkable. There is no abdominal adenopathy. There is no free fluid or free air within the abdomen. The abdominal portion of the GI tract is unremarkable. Pelvis: There is no free fluid in the pelvis. There is no pelvic adenopathy. Pelvic portion of the GI tract including the appendix is unremarkable. Postsurgical changes are noted in the right perirectal region with suture line noted along the right aspect of the gluteal fold. Small amount of air is noted in the right perianal soft tissues along the medial aspect of the gluteal fold consistent with the recent drainage and surgical procedure. Cannot exclude mild cellulitis in the right perianal region along the right aspect of the gluteal fold but no fluid collection to suggest abscess is noted. There is no involvement of the ischiorectal fossa . Degenerative changes are noted in the spine. No acute bony abnormality is noted. IMPRESSION: Postsurgical changes from recent drainage procedure in the right perianal region with no residual fluid collection to suggest abscess. Cannot exclude a mild cellulitis along the right aspect of the gluteal fold and please correlate clinically.
[2020-05-08] MEDS ORDERED: HYDROMORPHONE HCL INJ/PF 2 MG/ML AMPULE IV ONE (06:01)
--- NOTE | 2020-05-08 06:33 | PDOC CONSULTATION ---
Consultation Consult Date: 05/08/20 Attending physician:: NITA DRAKE Provider Consulted: DARIUSZ NORMAN Consult reason:: wound check History of Present Illness Admission Date/PCP: 05/08/20 05:09 SP [facility] History of Present Illness: ARLEY YEUNG is a 39 year old male3 with hypertension and surgical I&D of perianal abscess approximately 1 day prior to arrival presents with recurrent fevers for the past day since being discharged from hospital. Patient was discharged on Bactrim which she only had 1 dose of prior to arrival. Patient has been having measured fevers all day which recurred after antipyretics. Patient denies any diabetes, HIV, immunocompromise history, prior episodes, recent prior hospitalizations for for I&D, other recent antibiotics. Pain has been in the same location around the anal area since prior to I&D and has not worsened since I&D Past Medical History Pulmonary Medical History: Reports: Chronic Obstructive Pulmonary Disease (COPD) Psychiatric Medical History: Denies: Depression Past Surgical History Past Surgical History: Reports: Tonsillectomy Social History Smoking Status: Unknown if Ever Smoked Frequency of Alcohol Use: Rare Hx Recreational Drug Use: No Drugs: None Family History Family History: Reviewed & Not Pertinent Parental Family History Reviewed: No Children Family History Reviewed: NA Sibling(s) Family History Reviewed.: NA Medication/Allergy Home Medications: Lisinopril [Prinivil] 20 mg PO DAILY 05/07/20 Allergies/Adverse Reactions: Penicillins Allergy (Severe, Verified 05/07/20 21:17) Anaphylaxis amoxicillin Allergy (Verified 05/07/20 21:17) Anaphylaxis bee venom protein (honey bee) Allergy (Verified 12/11/18 23:39) vancomycin Allergy (Verified 12/11/18 23:39) walnut Allergy (Verified 12/11/18 23:39) cillins Allergy (Uncoded 12/11/18 23:39) Review of Systems Constitutional: PRESENT: chills, fatigue, fever(s) Eyes: ABSENT: as per HPI, visual disturbances, other Ears: ABSENT: as per HPI, hearing changes, other Nose, Mouth, and Throat: ABSENT: as per HPI, headache(s), mouth pain, sore throat, vertigo, other Breasts: ABSENT: as per HPI, other Cardiovascular: ABSENT: as per HPI, chest pain, dyspnea on exertion, edema, orthropnea, palpitations, other Respiratory: ABSENT: as per HPI, cough, dyspnea, hemoptysis, sputum, other Gastrointestinal: ABSENT: as per HPI, abdominal pain, bloating, coffee ground emesis, constipation, diarrhea, dysphagia, heartburn, hematemesis, hematochezia, melena, nausea, vomiting, other Genitourinary: ABSENT: as per HPI, difficulty urinating, dysuria, hematuria, nocturia, other Musculoskeletal: ABSENT: as per HPI, back pain, deformity, joint swelling, muscle weakness, other Integumentary: ABSENT: as per HPI, diaphoresis, erythema, lesions, pruritus, rash, wounds, other Neurological: ABSENT: as per HPI, abnormal gait, abnormal movements, abnormal speech, confusion, convulsions, dizziness, focal weakness, frequent falls, lack of coordination, memory loss, numbness, paresthesias, restless legs, syncope, tingling, tremor(s), vertigo, weakness, other Psychiatric: ABSENT: as per HPI, anxiety, depression, hallucinations, homidical ideation, suicidal ideation, other Endocrine: ABSENT: as per HPI, cold intolerance, flushing, heat intolerance, menstrual abnormalities, polydipsia, polyphagia, polyuria, other Hematologic/Lymphatic: ABSENT: as per HPI, easy bleeding, easy bruising, lymphadenopathy, other Allergic/Immunologic: ABSENT: as per HPI, seasonal rhinorrhea, other Physical Exam Vital Signs: Temp Pulse Resp BP Pulse Ox 99.1 F 94 20 106/71 97 05/07/20 21:28 05/07/20 23:34 05/07/20 21:07 05/07/20 23:34 05/07/20 23:34 Intake & Output 05/06/20 05/07/20 05/08/20 06:59 06:59 06:59 Weight 112.491 kg General appearance: PRESENT: mild distress Head exam: PRESENT: normocephalic Eye exam: PRESENT: EOMI Ear exam: PRESENT: normal external ear exam Mouth exam: PRESENT: moist Neck exam: PRESENT: full ROM Respiratory exam: PRESENT: clear to auscultation angela Cardiovascular exam: PRESENT: RRR Pulses: PRESENT: +2 pedal pulses bilateral Vascular exam: PRESENT: normal capillary refill Breast: PRESENT: Normal GI/Abdominal exam: PRESENT: soft Rectal exam: PRESENT: other - incision in perirectal abscess open, with seton in place indurated, no drainage, clean base Extremities exam: PRESENT: full ROM Musculoskeletal exam: PRESENT: full ROM Neurological exam: PRESENT: alert, awake, oriented to person, oriented to place Psychiatric exam: PRESENT: appropriate affect Skin exam: PRESENT: dry Results Laboratory Results: 05/07/20 19:45 05/07/20 19:45 05/07/20 05/07/20 05/07/20 19:45 19:45 19:45 WBC 9.6 RBC 4.35 Hgb 13.8 Hct 39.6 MCV 91 MCH 31.7 MCHC 34.8 RDW 13.4 Plt Count 207 Seg Neutrophils % 86.0 H Sodium 128.3 L Potassium 4.7 Chloride 96 L Carbon Dioxide 23 Anion Gap 9 BUN 22 H Creatinine 1.27 H Est GFR ( Amer) > 60 Glucose 114 H Lactic Acid 1.0 Calcium 9.2 Total Bilirubin 0.9 AST 37 Alkaline Phosphatase 74 Total Protein 7.0 Albumin 3.9 05/07/20 22:05 WBC RBC Hgb Hct MCV MCH MCHC RDW Plt Count Seg Neutrophils % Sodium Potassium Chloride Carbon Dioxide Anion Gap BUN Creatinine Est GFR ( Amer) Glucose Lactic Acid 0.7 Calcium Total Bilirubin AST Alkaline Phosphatase Total Protein Albumin Impressions: Abdomen/Pelvis CT 05/08/20 00:00 IMPRESSION: Postsurgical changes from recent drainage procedure in the right perianal region with no residual fluid collection to suggest abscess. Cannot exclude a mild cellulitis along the right aspect of the gluteal fold and please correlate clinically. Assessment & Plan - Plan Summary Plan Summary: impression - recurrent fevers with chills s/p i and d of perirectal abscess surgical site clean without further evidence of pus or surgical need recommend iv abx blood cults sitz bath surgery will follow.
[2020-05-08] MEDS ORDERED: NORMAL SALINE 1000 ML 3,370 ML IV ONE (08:15)
[2020-05-08] MEDS ORDERED: ACETAMINOPHEN 325 MG TABLET PO PRN (08:15)
[2020-05-08 09:44] LABS: ANION GAP 5 (5-19); BLOOD UREA NITROGEN 21 mg/dL (7-20); C-REACTIVE PROTEIN 81.4 mg/L (<10.0); CALCIUM 8.2 mg/dL (8.4-10.2); CARBON DIOXIDE 23 mmol/L (22-30); CHLORIDE 104 mmol/L (98-107); GLUCOSE 96 mg/dL (75-110); POTASSIUM 4.7 mmol/L (3.6-5.0)
[2020-05-08] MEDS: CLINDAMYCIN 600 MG/D5W RTU 600 MG/50 ML RTUPB IV SCH ×2 (13:12→21:21)
[2020-05-08] MEDS: AZTREONAM 1 GM in DEXTROSE 5%-WATER 50 ML IV SCH ×2 (13:12→22:43)
[2020-05-08] MEDS: OXYCODONE-ACETAMINOPHEN 5-325 MG TABLET PO PRN ×2 (15:37→21:37)
--- NOTE | 2020-05-08 18:14 | PDOC PROGRESS REPORT ---
Subjective Date:: 05/08/20 Subjective:: Feels better. Appears comfortable eating. Reason For Visit: FEVER, PERIRECTAL ABSCESS Physical Exam Vital Signs: Temp Pulse Resp BP Pulse Ox 98.3 F 76 18 130/80 H 100 05/08/20 11:26 05/08/20 11:26 05/08/20 11:26 05/08/20 11:26 05/08/20 11:26 Intake & Output 05/07/20 05/08/20 05/09/20 06:59 06:59 06:59 Intake Total 3970 Balance 3970 Weight 112.491 kg General appearance: PRESENT: no acute distress, cooperative Respiratory exam: PRESENT: clear to auscultation angela Cardiovascular exam: PRESENT: RRR GI/Abdominal exam: PRESENT: other - Soft, nondistended, nontender to palpation. Rectal exam: PRESENT: other - Perianal wound appears very clean. There is some induration anteriorly but no fluctuance. Seton is in place. Results Laboratory Results: 05/07/20 19:45 05/08/20 08:43 05/07/20 05/07/20 05/07/20 19:45 19:45 19:45 WBC 9.6 RBC 4.35 Hgb 13.8 Hct 39.6 MCV 91 MCH 31.7 MCHC 34.8 RDW 13.4 Plt Count 207 Seg Neutrophils % 86.0 H Sodium 128.3 L Potassium 4.7 Chloride 96 L Carbon Dioxide 23 Anion Gap 9 BUN 22 H Creatinine 1.27 H Est GFR ( Amer) > 60 Glucose 114 H Lactic Acid 1.0 Calcium 9.2 Magnesium Ferritin Total Bilirubin 0.9 AST 37 Alkaline Phosphatase 74 C-Reactive Protein Total Protein 7.0 Albumin 3.9 05/07/20 05/08/20 22:05 08:43 WBC RBC Hgb Hct MCV MCH MCHC RDW Plt Count Seg Neutrophils % Sodium 131.5 L Potassium 4.7 Chloride 104 Carbon Dioxide 23 Anion Gap 5 BUN 21 H Creatinine 1.11 Est GFR ( Amer) > 60 Glucose 96 Lactic Acid 0.7 Calcium 8.2 L Magnesium 2.0 Ferritin 362.00 Total Bilirubin AST Alkaline Phosphatase C-Reactive Protein 81.4 H Total Protein Albumin Impressions: Abdomen/Pelvis CT 05/08/20 00:00 IMPRESSION: Postsurgical changes from recent drainage procedure in the right perianal region with no residual fluid collection to suggest abscess. Cannot exclude a mild cellulitis along the right aspect of the gluteal fold and please correlate clinically. Assessment & Plan - Diagnosis (1) Sepsis Qualifiers: Sepsis type: sepsis due to unspecified organism Sepsis acute organ dysfunction status: without acute organ dysfunction Qualified Code(s): A41.9 - Sepsis, unspecified organism Is this a current diagnosis for this admission?: Yes Plan: Likely due to transient bacteremia with his perianal abscess drainage. Patient looks much better than earlier today with resolution of his fevers and rigors. I do not see any role for further acute surgical intervention. - Time Anticipated Discharge Disposition: Home, Self Care Anticipated Discharge Timeframe: within 36 hours
--- NOTE | 2020-05-08 19:10 | PDOC H&P ---
History of Present Illness Admission Date/PCP: 05/08/20 05:09 SP LIM History of Present Illness: ARLEY YEUNG is a 39 year old male with PMH of hypertension and s/p surgical I&D of perianal abscess approximately 1 day prior to arrival who presents with recurrent fevers for the past day since being discharged from hospital. Patient was discharged on Bactrim which she only had 1 dose of prior to arrival. Patient has been having measured fevers/chills/rigors all day which recurred after antipyretics. Pain has been in the same location around the anal area since prior to I&D and has not worsened since I&D. Past Medical History Cardiac Medical History: Reports: Hypertension Psychiatric Medical History: Denies: Depression Past Surgical History Past Surgical History: Reports: Tonsillectomy, Other - I&D of perirectal abscess Social History Information Source: Patient Smoking Status: Unknown if Ever Smoked Frequency of Alcohol Use: Rare Hx Recreational Drug Use: No Drugs: None - Advance Directive Resuscitation Status: Full Code Family History Family History: Reviewed & Not Pertinent Parental Family History Reviewed: Yes Children Family History Reviewed: Yes Sibling(s) Family History Reviewed.: Yes Medication/Allergy Home Medications: Lisinopril [Prinivil] 20 mg PO DAILY 05/07/20 Allergies/Adverse Reactions: Penicillins Allergy (Severe, Verified 05/07/20 21:17) Anaphylaxis amoxicillin Allergy (Verified 05/07/20 21:17) Anaphylaxis bee venom protein (honey bee) Allergy (Verified 12/11/18 23:39) vancomycin Allergy (Verified 12/11/18 23:39) walnut Allergy (Verified 12/11/18 23:39) cillins Allergy (Uncoded 12/11/18 23:39) Review of Systems Constitutional: PRESENT: chills, fatigue, fever(s) Nose, Mouth, and Throat: ABSENT: headache(s), mouth pain, sore throat Cardiovascular: ABSENT: chest pain, dyspnea on exertion Respiratory: ABSENT: cough, dyspnea, sputum Gastrointestinal: ABSENT: abdominal pain, constipation, diarrhea, heartburn, nausea, vomiting Genitourinary: ABSENT: difficulty urinating, dysuria Psychiatric: PRESENT: anxiety Hematologic/Lymphatic: ABSENT: easy bruising, lymphadenopathy Physical Exam Vital Signs: Temp Pulse Resp BP Pulse Ox 97.9 F 82 16 109/71 96 05/08/20 07:20 05/08/20 07:20 05/08/20 07:20 05/08/20 07:20 05/08/20 07:20 Intake & Output 05/07/20 05/08/20 05/09/20 06:59 06:59 06:59 Weight 112.491 kg General appearance: PRESENT: no acute distress, cooperative Head exam: PRESENT: atraumatic Eye exam: ABSENT: scleral icterus Mouth exam: PRESENT: dry mucosa Throat exam: ABSENT: post pharyngeal erythema Neck exam: ABSENT: JVD Respiratory exam: PRESENT: clear to auscultation angela, unlabored Cardiovascular exam: PRESENT: RRR GI/Abdominal exam: PRESENT: normal bowel sounds, soft. ABSENT: tenderness Rectal exam: PRESENT: other - surgical site w/o induration or pus, but does have cellulitis on buttocks around surgical site Gentrourinary exam: ABSENT: scrotal swelling Extremities exam: ABSENT: joint swelling, pedal edema Musculoskeletal exam: PRESENT: ambulatory Neurological exam: PRESENT: alert, awake, oriented to person, oriented to place, oriented to time, oriented to situation Psychiatric exam: PRESENT: anxious Skin exam: ABSENT: rash Results Laboratory Results: 05/07/20 19:45 05/07/20 19:45 05/07/20 05/07/20 05/07/20 19:45 19:45 19:45 WBC 9.6 RBC 4.35 Hgb 13.8 Hct 39.6 MCV 91 MCH 31.7 MCHC 34.8 RDW 13.4 Plt Count 207 Seg Neutrophils % 86.0 H Sodium 128.3 L Potassium 4.7 Chloride 96 L Carbon Dioxide 23 Anion Gap 9 BUN 22 H Creatinine 1.27 H Est GFR ( Amer) > 60 Glucose 114 H Lactic Acid 1.0 Calcium 9.2 Total Bilirubin 0.9 AST 37 Alkaline Phosphatase 74 Total Protein 7.0 Albumin 3.9 05/07/20 22:05 WBC RBC Hgb Hct MCV MCH MCHC RDW Plt Count Seg Neutrophils % Sodium Potassium Chloride Carbon Dioxide Anion Gap BUN Creatinine Est GFR ( Amer) Glucose Lactic Acid 0.7 Calcium Total Bilirubin AST Alkaline Phosphatase Total Protein Albumin Impressions: Abdomen/Pelvis CT 05/08/20 00:00 IMPRESSION: Postsurgical changes from recent drainage procedure in the right perianal region with no residual fluid collection to suggest abscess. Cannot exclude a mild cellulitis along the right aspect of the gluteal fold and please correlate clinically. Assessment and Plan - Diagnosis (1) Sepsis Qualifiers: Sepsis type: sepsis due to unspecified organism Sepsis acute organ dysfun ction status: without acute organ dysfunction Qualified Code(s): A41.9 - Sepsis, unspecified organism Is this a current diagnosis for this admission?: Yes (2) Hypertension Qualifiers: Hypertension type: essential hypertension Qualified Code(s): I10 - Essential (primary) hypertension Is this a current diagnosis for this admission?: Yes (3) Perineal abscess Is this a current diagnosis for this admission?: Yes - Plan Summary Summary: 39 M with fevers/chills/rigors s/p I&D of perirectal abscess 1 day prior to admission. He remains HD-stable on IV antibiotics and surgical site without further evidence of pus. BCx with NGTD. Appreciate surgery recommendations. He has no other potential sites of infection. Hold home BP medications given that he has been normotensive so far, although we may have to restart home meds tomorrow if BP continues to increase. DOUG, Hyponatremia: due to dehydration and improving with IVF. Recheck BMP in AM. - Time Time Spent with patient: 35 or more minutes Anticipated Discharge Disposition: Home, Self Care Anticipated Discharge Timeframe: within 48 hours
[2020-05-09] MEDS: AZTREONAM 1 GM in DEXTROSE 5%-WATER 50 ML IV SCH ×3 (05:19→21:36)
[2020-05-09] MEDS ORDERED: DOCUSATE SODIUM 100 MG CAPSULE PO SCH (06:00)
[2020-05-09] MEDS: CLINDAMYCIN 600 MG/D5W RTU 600 MG/50 ML RTUPB IV SCH ×2 (06:21→14:19)
[2020-05-09] MEDS: OXYCODONE-ACETAMINOPHEN 5-325 MG TABLET PO PRN ×3 (06:49→22:47)
[2020-05-09 06:59] LABS: ANION GAP 7 (5-19); BLOOD UREA NITROGEN 13 mg/dL (7-20); CALCIUM 8.7 mg/dL (8.4-10.2); CARBON DIOXIDE 22 mmol/L (22-30); CHLORIDE 105 mmol/L (98-107); GLUCOSE 149 mg/dL (75-110); POTASSIUM 4.6 mmol/L (3.6-5.0)
--- NOTE | 2020-05-09 07:46 | PDOC PROGRESS REPORT ---
Subjective Date:: 05/09/20 Subjective:: still "doesnt feel right" c/o constipation no abd pain Reason For Visit: FEVER, PERIRECTAL ABSCESS Physical Exam Vital Signs: Temp Pulse Resp BP Pulse Ox 98 F 77 18 116/68 95 05/09/20 00:00 05/09/20 00:00 05/09/20 00:00 05/09/20 00:00 05/09/20 00:00 Intake & Output 05/08/20 05/09/20 05/10/20 06:59 06:59 06:59 Intake Total 4320 Balance 4320 Weight 112.491 kg 114 kg General appearance: PRESENT: mild distress Head exam: PRESENT: normocephalic Eye exam: PRESENT: EOMI Ear exam: PRESENT: normal external ear exam Mouth exam: PRESENT: moist Neck exam: PRESENT: full ROM Respiratory exam: PRESENT: clear to auscultation angela Cardiovascular exam: PRESENT: RRR Pulses: PRESENT: normal radial pulses, normal femoral pulses Vascular exam: PRESENT: normal capillary refill Breast: PRESENT: Normal GI/Abdominal exam: PRESENT: soft Rectal exam: PRESENT: other - rectal incision clean draining. seton in place Extremities exam: PRESENT: full ROM Musculoskeletal exam: PRESENT: full ROM Neurological exam: PRESENT: alert, awake, oriented to person, oriented to place Psychiatric exam: PRESENT: appropriate affect Skin exam: PRESENT: dry Results Laboratory Results: 05/07/20 19:45 05/09/20 05:55 05/08/20 05/09/20 08:43 05:55 Sodium 131.5 L 134.1 L Potassium 4.7 4.6 Chloride 104 105 Carbon Dioxide 23 22 Anion Gap 5 7 BUN 21 H 13 Creatinine 1.11 0.93 Est GFR ( Amer) > 60 > 60 Glucose 96 149 H Calcium 8.2 L 8.7 Magnesium 2.0 1.9 Ferritin 362.00 C-Reactive Protein 81.4 H Impressions: Abdomen/Pelvis CT 05/08/20 00:00 IMPRESSION: Postsurgical changes from recent drainage procedure in the right perianal region with no residual fluid collection to suggest abscess. Cannot exclude a mild cellulitis along the right aspect of the gluteal fold and please correlate clinically. Assessment & Plan - Time Anticipated Discharge Disposition: Home, Self Care Anticipated Discharge Timeframe: within 48 hours - Plan Summary Plan Summary: stilll weak uncomfortable min rectal pain c/o constipation wbc wnl plan lactulose. cont iv abx.
[2020-05-09 07:55] LABS: ABSOLUTE EOSINOPHILS # (AUTO) 0.2 10^3/uL (0.0-0.6); ABSOLUTE LYMPHOCYTES (AUTO) 0.8 10^3/uL (0.5-4.7); ABSOLUTE MONOCYTES (AUTO) 0.8 10^3/uL (0.1-1.4); ABSOLUTE NEUT (AUTO) 5.1 10^3/uL (1.7-8.2); BASOPHILS % (AUTO) 0.7 % (0-2); EOSINOPHILS % (AUTO) 2.3 % (0-6); HEMATOCRIT 35.9 % (37.9-51.0); HEMOGLOBIN 12.6 g/dL (13.5-17.0); LYMPHOCYTES % (AUTO) 11.3 % (13-45); MEAN CORPUSCULAR HGB CONC 35.1 g/dL (32.0-36.0); MEAN CORPUSCULAR VOLUME 91 fl (80-97); MONOCYTES % (AUTO) 11.4 % (3-13); PLATELET COUNT 192 10^3/uL (150-450); RED BLOOD COUNT 3.95 10^6/uL (4.35-5.55); RED CELL DISTRIBUTION WIDTH 13.2 % (11.5-14.0); SEGMENTED NEUTROPHILS % (AUTO) 74.3 % (42-78); TOTAL CELLS COUNTED % (AUTO) 100 %; WHITE BLOOD COUNT 6.8 10^3/uL (4.0-10.5)
[2020-05-09] MEDS: POLYETHYLENE GLYCOL 3350 POWDER 17 GM/1 PACKET PO SCH (09:20)
[2020-05-09] MEDS: LACTULOSE SYRUP 20 GM/30 ML UDCUP PO SCH ×3 (09:20→21:36)
[2020-05-09] MEDS ORDERED: SENNOSIDES/DOCUSATE 8.6-50 MG 1 EACH TABLET PO SCH (10:00)
[2020-05-09] MEDS ORDERED: LACTULOSE SYRUP 20 GM/30 ML UDCUP PO SCH (14:00)
--- NOTE | 2020-05-09 15:34 | PDOC PROGRESS REPORT ---
Subjective Date:: 05/09/20 Subjective:: NAEO. Feeling better overall today. Reason For Visit: FEVER, PERIRECTAL ABSCESS Physical Exam Vital Signs: Temp Pulse Resp BP Pulse Ox 97.9 F 68 19 126/87 H 96 05/09/20 11:30 05/09/20 11:30 05/09/20 11:30 05/09/20 11:30 05/09/20 11:30 Intake & Output 05/08/20 05/09/20 05/10/20 06:59 06:59 06:59 Intake Total 4320 222 Balance 4320 222 Weight 112.491 kg 114 kg General appearance: PRESENT: no acute distress, cooperative Eye exam: ABSENT: scleral icterus Mouth exam: PRESENT: moist Throat exam: ABSENT: post pharyngeal erythema Neck exam: ABSENT: JVD Respiratory exam: PRESENT: clear to auscultation angela, unlabored Cardiovascular exam: PRESENT: RRR GI/Abdominal exam: PRESENT: normal bowel sounds, soft. ABSENT: tenderness Rectal exam: PRESENT: other - cellulitis around surgical site much improved Gentrourinary exam: ABSENT: indwelling catheter Extremities exam: ABSENT: pedal edema Neurological exam: PRESENT: alert, awake, oriented to person, oriented to place, oriented to time, oriented to situation Psychiatric exam: PRESENT: appropriate affect Skin exam: ABSENT: jaundice Results Laboratory Results: 05/09/20 05:55 05/09/20 05:55 05/09/20 05/09/20 05:55 05:55 WBC 6.8 RBC 3.95 L Hgb 12.6 L Hct 35.9 L MCV 91 MCH 32.0 MCHC 35.1 RDW 13.2 Plt Count 192 Seg Neutrophils % 74.3 Sodium 134.1 L Potassium 4.6 Chloride 105 Carbon Dioxide 22 Anion Gap 7 BUN 13 Creatinine 0.93 Est GFR ( Amer) > 60 Glucose 149 H Calcium 8.7 Magnesium 1.9 Impressions: Abdomen/Pelvis CT 05/08/20 00:00 IMPRESSION: Postsurgical changes from recent drainage procedure in the right perianal region with no residual fluid collection to suggest abscess. Cannot exclude a mild cellulitis along the right aspect of the gluteal fold and please correlate clinically. Assessment and Plan - Diagnosis (1) Sepsis Qualifiers: Sepsis type: sepsis due to unspecified organism Sepsis acute organ dysfunction status: without acute organ dysfunction Qualified Code(s): A41.9 - Sepsis, unspecified organism Is this a current diagnosis for this admission?: Yes (2) Hypertension Qualifiers: Hypertension type: essential hypertension Qualified Code(s): I10 - Essential (primary) hypertension Is this a current diagnosis for this admission?: Yes (3) Perineal abscess Is this a current diagnosis for this admission?: Yes (4) DOUG (acute kidney injury) Is this a current diagnosis for this admission?: Yes (5) Hyponatremia Is this a current diagnosis for this admission?: Yes (6) Dehydration Is this a current diagnosis for this admission?: Yes - Plan Summary Summary: 39 M with fevers/chills/rigors s/p I&D of perirectal abscess 1 day prior to admission. He remains HD-stable on IV antibiotics and surgical site without further evidence of pus. BCx with NGTD. Appreciate surgery recommendations. He has no other potential sites of infection. Hold home BP medications given that he has been normotensive so far, although we may have to restart home meds tomorrow if BP continues to increase. DOUG, Hyponatremia: due to dehydration and improving with IVF. Recheck BMP in AM. Constipation: resolved with bowel regimen. If BCx show NGTD at 48 hours, he may be discharged home tomorrow on oral antibiotic therapy. - Time Time Spent with patient: 35 or more minutes Anticipated Discharge Disposition: Home, Self Care Anticipated Discharge Timeframe: within 24 hours
[2020-05-10] MEDS: CLINDAMYCIN 600 MG/D5W RTU 600 MG/50 ML RTUPB IV SCH ×2 (00:31→05:56)
[2020-05-10] MEDS: AZTREONAM 1 GM in DEXTROSE 5%-WATER 50 ML IV SCH (05:11)
[2020-05-10] MEDS: LACTULOSE SYRUP 20 GM/30 ML UDCUP PO SCH (05:15)
[2020-05-10 05:34] LABS: ABSOLUTE BASOPHILS # (AUTO) 0.1 10^3/uL (0.0-0.2); ABSOLUTE EOSINOPHILS # (AUTO) 0.2 10^3/uL (0.0-0.6); ABSOLUTE LYMPHOCYTES (AUTO) 1.4 10^3/uL (0.5-4.7); ABSOLUTE MONOCYTES (AUTO) 0.7 10^3/uL (0.1-1.4); ABSOLUTE NEUT (AUTO) 2.8 10^3/uL (1.7-8.2); BASOPHILS % (AUTO) 1.2 % (0-2); EOSINOPHILS % (AUTO) 4.1 % (0-6); HEMATOCRIT 33.9 % (37.9-51.0); HEMOGLOBIN 11.8 g/dL (13.5-17.0); LYMPHOCYTES % (AUTO) 26.5 % (13-45); MEAN CORPUSCULAR HEMOGLOBIN 31.4 pg (27.0-33.4); MEAN CORPUSCULAR HGB CONC 34.9 g/dL (32.0-36.0); MEAN CORPUSCULAR VOLUME 90 fl (80-97); MONOCYTES % (AUTO) 13.1 % (3-13); PLATELET COUNT 199 10^3/uL (150-450); RED BLOOD COUNT 3.77 10^6/uL (4.35-5.55); RED CELL DISTRIBUTION WIDTH 13.2 % (11.5-14.0); SEGMENTED NEUTROPHILS % (AUTO) 55.1 % (42-78); TOTAL CELLS COUNTED % (AUTO) 100 %; WHITE BLOOD COUNT 5.1 10^3/uL (4.0-10.5)
[2020-05-10 06:05] LABS: ANION GAP 8 (5-19); BLOOD UREA NITROGEN 14 mg/dL (7-20); CALCIUM 8.6 mg/dL (8.4-10.2); CARBON DIOXIDE 23 mmol/L (22-30); CHLORIDE 106 mmol/L (98-107); GLUCOSE 99 mg/dL (75-110); POTASSIUM 4.7 mmol/L (3.6-5.0)
--- NOTE | 2020-05-10 09:33 | PDOC PROGRESS REPORT ---
Subjective Date:: 05/10/20 Subjective:: Feels much better. No further rigors. Perianal region feels much better as wel l. Reason For Visit: FEVER, PERIRECTAL ABSCESS Physical Exam Vital Signs: Temp Pulse Resp BP Pulse Ox 98.6 F 62 18 123/72 96 05/10/20 03:27 05/10/20 03:27 05/10/20 03:27 05/10/20 03:27 05/10/20 03:27 Intake & Output 05/09/20 05/10/20 05/11/20 06:59 06:59 06:59 Intake Total 4320 512 Balance 4320 512 Weight 114 kg 115.6 kg Respiratory exam: PRESENT: clear to auscultation angela Cardiovascular exam: PRESENT: RRR Rectal exam: PRESENT: other - Perianal region appears very clean with no puru lent drainage and diminished induration in the surrounding region. No fluctuance. Seton in place. Results Laboratory Results: 05/10/20 05:07 05/10/20 05:07 05/10/20 05/10/20 05:07 05:07 WBC 5.1 RBC 3.77 L Hgb 11.8 L Hct 33.9 L MCV 90 MCH 31.4 MCHC 34.9 RDW 13.2 Plt Count 199 Seg Neutrophils % 55.1 Sodium 136.7 L Potassium 4.7 Chloride 106 Carbon Dioxide 23 Anion Gap 8 BUN 14 Creatinine 0.88 Est GFR ( Amer) > 60 Glucose 99 Calcium 8.6 Magnesium 2.0 Impressions: Abdomen/Pelvis CT 05/08/20 00:00 IMPRESSION: Postsurgical changes from recent drainage procedure in the right perianal region with no residual fluid collection to suggest abscess. Cannot exclude a mild cellulitis along the right aspect of the gluteal fold and please correlate clinically. Assessment & Plan - Diagnosis (1) Sepsis Qualifiers: Sepsis type: sepsis due to unspecified organism Sepsis acute organ dysfunction status: without acute organ dysfunction Qualified Code(s): A41.9 - Sepsis, unspecified organism Is this a current diagnosis for this admission?: Yes Plan: Patient markedly improved with IV antibiotics. Perianal region looks good with no indication for further surgical intervention at this time. Will defer decision to discharge to the hospitalist service, patient already has appointment to see us for follow-up. Surgical service signing off. Please call us for any questions or concerns. I have given patient wound care instructions, mainly to wash the wound or do a sitz bath after each bowel movement and daily. - Time Anticipated Discharge Disposition: Home, Self Care Anticipated Discharge Timeframe: within 48 hours
[2020-05-10] MEDS: POLYETHYLENE GLYCOL 3350 POWDER 17 GM/1 PACKET PO SCH (10:16)
[2020-05-10] MEDS: OXYCODONE-ACETAMINOPHEN 5-325 MG TABLET PO PRN (10:17)
[2020-05-10 12:22] VITALS: BP 116/68
--- NOTE | 2020-05-10 17:19 | PDOC DISCHARGE SUMMARY ---
Impression - Admit/DC Date/PCP Admission Date/Primary Care Provider: 05/08/20 05:09 [facility] Discharge Date: 05/10/20 - Discharge Diagnosis (1) Sepsis Is this a current diagnosis for this admission?: Yes (2) Hypertension Is this a current diagnosis for this admission?: Yes (3) Perineal abscess Is this a current diagnosis for this admission?: Yes (4) DOUG (acute kidney injury) Is this a current diagnosis for this admission?: Yes (5) Hyponatremia Is this a current diagnosis for this admission?: Yes (6) Dehydration Is this a current diagnosis for this admission?: Yes - Assessment Summary: 39 M with PMH of HTN who presented with fevers/chills/rigors s/p I&D of perirectal abscess 1 day prior to admission. Fever: CT A/P showed no evidence of abscess. Surgical site without evidence of pus. He had very mild non-purulent cellulitis around the surgical site. BCx with NGTD x48 hours and he remained HD-stable throughout admission. No other potential sites of infection were found. I suspect he may have had transient bacteremia after his recent surgery. He was discharged home in stable condition with a week of Cipro/Flagyl and close outpatient surgery follow up in 1 week. DOUG, Hypovolemic Hyponatremia: due to dehydration and resolved with IVF. Constipation: resolved with bowel regimen. - Additional Information Resuscitation Status: Full Code Discharge Diet: Regular Discharge Activity: Activity As Tolerated Referrals: DARIUSZ NORMAN MD [ACTIVE STAFF] - 05/21/20 9:15 am Prescriptions: Ciprofloxacin HCl [Cipro 500 mg Tablet] 500 mg PO BID #14 tablet Metronidazole [Flagyl 500 mg Tablet] 500 mg PO TID #21 tablet Home Medications: Lisinopril [Prinivil] 20 mg PO DAILY 05/07/20 Ciprofloxacin HCl [Cipro 500 mg Tablet] 500 mg PO BID #14 tablet 05/10/20 Metronidazole [Flagyl 500 mg Tablet] 500 mg PO TID #21 tablet 05/10/20 Polyethylene Glycol 3350 [Miralax Powder 17 gm/Packet] 17 gm PO DAILY powd.pack 05/10/20 History of Present Illiness History of Present Illness: ARLEY YEUNG is a 39 year old male with PMH of hypertension and s/p surgical I&D of perianal abscess approximately 1 day prior to arrival who presents with recurrent fevers for the past day since being discharged from hospital. Patient was discharged on Bactrim which she only had 1 dose of prior to arrival. Patient has been having measured fevers/chills/rigors all day which recurred after antipyretics. Pain has been in the same location around the anal area since prior to I&D and has not worsened since I&D. Physical Exam Vital Signs: Temp Pulse Resp BP Pulse Ox 98.2 F 59 L 18 116/68 100 05/10/20 12:18 05/10/20 12:18 05/10/20 12:18 05/10/20 12:18 05/10/20 12:18 Intake & Output 05/09/20 05/10/20 05/11/20 06:59 06:59 06:59 Intake Total 4320 512 Balance 4320 512 Weight 114 kg 115.6 kg Results Laboratory Results: WBC 5.1 10^3/uL (4.0-10.5) 05/10/20 05:07 RBC 3.77 10^6/uL (4.35-5.55) L 05/10/20 05:07 Hgb 11.8 g/dL (13.5-17.0) L 05/10/20 05:07 Hct 33.9 % (37.9-51.0) L 05/10/20 05:07 MCV 90 fl (80-97) 05/10/20 05:07 MCH 31.4 pg (27.0-33.4) 05/10/20 05:07 MCHC 34.9 g/dL (32.0-36.0) 05/10/20 05:07 RDW 13.2 % (11.5-14.0) 05/10/20 05:07 Plt Count 199 10^3/uL (150-450) 05/10/20 05:07 Lymph % (Auto) 26.5 % (13-45) 05/10/20 05:07 [place] % (Auto) 13.1 % (3-13) H 05/10/20 05:07 Eos % (Auto) 4.1 % (0-6) 05/10/20 05:07 Baso % (Auto) 1.2 % (0-2) 05/10/20 05:07 Absolute Neuts (auto) 2.8 10^3/uL (1.7-8.2) 05/10/20 05:07 Absolute Lymphs (auto) 1.4 10^3/uL (0.5-4.7) 05/10/20 05:07 Absolute Monos (auto) 0.7 10^3/uL (0.1-1.4) 05/10/20 05:07 Absolute Eos (auto) 0.2 10^3/uL (0.0-0.6) 05/10/20 05:07 Absolute Basos (auto) 0.1 10^3/uL (0.0-0.2) 05/10/20 05:07 Seg Neutrophils % 55.1 % (42-78) 05/10/20 05:07 ESR 41 mm/hr (0-15) H 05/08/20 08:43 D-Dimer 0.81 ug/mL (0.00-0.50) H 05/08/20 08:43 Sodium 136.7 mmol/L (137-145) L 05/10/20 05:07 Potassium 4.7 mmol/L (3.6-5.0) 05/10/20 05:07 Chloride 106 mmol/L (98-107) 05/10/20 05:07 Carbon Dioxide 23 mmol/L (22-30) 05/10/20 05:07 Anion Gap 8 (5-19) 05/10/20 05:07 BUN 14 mg/dL (7-20) 05/10/20 05:07 Creatinine 0.88 mg/dL (0.52-1.25) 05/10/20 05:07 Est GFR ( Amer) > 60 (>60) 05/10/20 05:07 Est GFR (MDRD) Non-Af > 60 (>60) 05/10/20 05:07 Glucose 99 mg/dL (75-110) 05/10/20 05:07 Lactic Acid 0.7 mmol/L (0.7-2.1) 05/07/20 22:05 Calcium 8.6 mg/dL (8.4-10.2) 05/10/20 05:07 Magnesium 2.0 mg/dL (1.6-2.3) 05/10/20 05:07 Ferritin 362.00 ng/mL (17.9-464.0) 05/08/20 08:43 Total Bilirubin 0.9 mg/dL (0.2-1.3) 05/07/20 19:45 Direct Bilirubin 0.1 mg/dL (0.0-0.4) 05/07/20 19:45 Neonat Total Bilirubin Not Reportable 05/07/20 19:45 Neonat Direct Bilirubin Not Reportable 05/07/20 19:45 Neonat Indirect Bili Not Reportable 05/07/20 19:45 AST 37 U/L (17-59) 05/07/20 19:45 ALT 25 U/L (<50) 05/07/20 19:45 Alkaline Phosphatase 74 U/L (38-126) 05/07/20 19:45 Lactate Dehydrogenase 177 U/L (120-246) 05/08/20 08:43 C-Reactive Protein 81.4 mg/L (<10.0) H 05/08/20 08:43 Total Protein 7.0 g/dL (6.3-8.2) 05/07/20 19:45 Albumin 3.9 g/dL (3.5-5.0) 05/07/20 19:45 Impressions: Abdomen/Pelvis CT 05/08/20 00:00 IMPRESSION: Postsurgical changes from recent drainage procedure in the right perianal region with no residual fluid collection to suggest abscess. Cannot exclude a mild cellulitis along the right aspect of the gluteal fold and please correlate clinically. Stroke Is this a Stroke Patient?: No Acute Heart Failure Is this a Heart Failure Patient?: No
== END 2020-05-10 12:39 | disposition home or self-care (01) ==
LOC: ER 18:57 → EH 05-08 05:09 → INTOOBSV 05-08 05:09 → 5 05-08 07:42
PROVIDERS: ADMIT Hospitalist; ATTEND Hospitalist
DX: A41.9 Sepsis, unspecified organism (principal); N17.9 Acute kidney failure, unspecified; K61.1 Rectal abscess; I10 Essential (primary) hypertension; E87.1 Hypo-osmolality and hyponatremia; E86.0 Dehydration; Z79.899 Other long term (current) drug therapy; J44.9 Chronic obstructive pulmonary disease, unspecified; Z88.0 Allergy status to penicillin; Z88.1 Allergy status to other antibiotic agents; Z98.890 Other specified postprocedural states
CPT/HCPCS: 99285; 36415 ×4; 87040; 82728; 83605; 83615; 83735 ×3; 85025 ×2; 85652; 86140; 80048 ×3; 80053; 85379; 74177; G0378 ×3; J3490 ×10; S0077 ×3; J2020; J1170; J7060 ×3; J7030